=== PATIENT | male | born 1990 | race Caucasian/White ===

== ENCOUNTER 2019-04-29 00:54 | Emergency (ER) | payer SELFPAY ==
[~2019-04-29] VITALS: Ht 182.9 cm; Wt 74.8 kg
[~2019-04-29 00:54] MED LIST: Acetaminophen-1 EAC1 PO; IBUP800 PO; PROC10 PO; Zantac150 MG PO
[2019-04-29 01:48] LABS: Influenza A Negative (NEGATIVE); Influenza B Negative (NEGATIVE)
[2019-04-29 02:18] LABS: BASOPHILS ABSOLUTE AUTO 0.04 K/mm3 (0.00-0.23); BASOPHILS PERCENT AUTO 1 % (0-2); EOSINOPHILS ABSOLUTE AUTO 0.25 K/mm3 (0.00-0.68); EOSINOPHILS PERCENT AUTO 3 % (0-6); Hematocrit 41.4 % (37.0-53.0); Hemoglobin 14.2 g/dL (13.5-17.5); IMMATURE GRAN ABSOLUTE AUTO 0.04 K/mm3 (0.00-0.10); IMMATURE GRAN PERCENT AUTO 1 % (0-1); LYMPHOCYTES ABSOLUTE AUTO 2.91 K/mm3 (0.84-5.20); LYMPHOCYTES PERCENT AUTO 35 % (21-46); MONOCYTES ABSOLUTE AUTO 0.89 K/mm3 (0.16-1.47); MONOCYTES PERCENT AUTO 11 % (4-13); Mean Corpuscular HGB 32.8 pg (26.0-34.0); Mean Corpuscular HGB Conc 34.3 g/dL (31.5-36.5); Mean Corpuscular Volume 96 fL (80-100); Mean Platelet Volume 8.9 fL (9.1-12.4); NEUTROPHILS ABSOLUTE AUTO 4.17 K/mm3 (1.96-9.15); NEUTROPHILS PERCENT AUTO 50 % (41-73); Platelet Count 252 K/mm3 (150-400); RDW Coefficient Variation 11.1 % (11.7-14.2); RDW Standard Deviation 38.8 fL (35.1-46.3); Red Blood Cell Count 4.33 M/mm3 (4.30-5.90)
[2019-04-29 02:26] LABS: Alanine Aminotransfer (ALT/SGP 48 U/L (12-78); Albumin, Blood 3.7 g/dL (3.4-5.0); Alk Phos 76 U/L (50-136); Anion Gap 4 mmol/L (6-16); Aspartate Aminotrans (AST/SGOT 26 U/L (12-37); Bilirubin, Total 0.3 mg/dL (0.1-1.0); Blood Urea Nitrogen 17 mg/dL (8-24); Bun/Creatinine Ratio 19.2 (12.0-20.0); CO2, Blood 31 mmol/L (21-32); Calcium, Blood 8.8 mg/dL (8.5-10.1); Chloride, Blood 105 mmol/L (98-108); Creatinine, Blood 0.89 mg/dL (0.60-1.20); Globulin, Blood 3.6 g/dL (2.2-4.0); Glomerular Filtration Rate >60 (60-); Glucose, Blood 93 mg/dL (70-99); Sodium, Blood 140 mmol/L (136-145); Total Protein, Blood 7.3 g/dL (6.4-8.2)
[2019-04-29 02:38] LABS: Ethanol (Alcohol), Blood, Med <3 mg/dL
== END 2019-04-29 03:50 | disposition home or self-care (01) ==
LOC: ER 00:54
PROVIDERS: Emergency Medicine
DX: R10.9 Unspecified abdominal pain (principal); F17.210 Nicotine dependence, cigarettes, uncomplicated; F17.290 Nicotine dependence, other tobacco product, uncomplicated
CPT/HCPCS: 36415; 80053; 83690; 85025; 87804; 96360; 99284-25; G0480; J7030

== ENCOUNTER 2020-04-04 21:21 | Emergency (ER) | payer SELFPAY ==
[~2020-04-04] VITALS: Ht 180.3 cm; Wt 77.2 kg
== END 2020-04-04 22:28 | disposition left against medical advice (07) ==
LOC: ER 21:21
DX: S30.1XXA Contusion of abdominal wall, initial encounter (principal); F17.210 Nicotine dependence, cigarettes, uncomplicated; W23.1XXA Caught, crushed, jammed, or pinched between stationary objects, initial encounter
CPT/HCPCS: 99282

== ENCOUNTER 2020-09-03 03:13 | Emergency (ER) | payer OTHER ==
[~2020-09-03] VITALS: Ht 193 cm; Wt 72.6 kg
[~2020-09-03 03:13] MED LIST changes: +Amoxicillin500 MG PO; +Amoxicillin875 MG PO; +Crutch1 EACH MISC; +IBU800 MG PO; +IBUP600 PO; +MIRT30 PO; +NAPR550 PO; +ONDA4ODT MM; +PAROEX473 ML MM
[2020-09-03] MEDS ORDERED: AMOCLA875 PO (03:43)
== END 2020-09-03 03:45 | disposition home or self-care (01) ==
LOC: ER 03:13
DX: K02.9 Dental caries, unspecified (principal); F17.210 Nicotine dependence, cigarettes, uncomplicated
CPT/HCPCS: 99283; A9270

== ENCOUNTER 2021-03-16 23:18 | Emergency (ER) | payer OTHER ==
[~2021-03-16] VITALS: Ht 182.9 cm; Wt 77.1 kg
[~2021-03-16 23:18] MED LIST changes: +AMOCLA875 PO
[2021-03-17 01:15] LABS: SARS-Cov-2 (COVID-19) PCR, MMC NEGATIVE (NEGATIVE)
== END 2021-03-17 00:15 | disposition left against medical advice (07) ==
LOC: ER 23:18
PROVIDERS: Emergency Medicine
DX: K08.89 Other specified disorders of teeth and supporting structures (principal); F17.210 Nicotine dependence, cigarettes, uncomplicated; Z53.21 Procedure and treatment not carried out due to patient leaving prior to being seen by health care provider; Z20.822 Contact with and (suspected) exposure to COVID-19
CPT/HCPCS: 99283; J1885; U0004

== ENCOUNTER 2022-01-15 12:59 | Emergency (ER) | payer SELFPAY ==
[~2022-01-15] VITALS: Ht 180.3 cm; Wt 77.1 kg
[~2022-01-15 12:59] MED LIST changes: +CEPH500 PO
== END 2022-01-15 16:00 | disposition left against medical advice (07) ==
LOC: ER 12:59
DX: R11.2 Nausea with vomiting, unspecified (principal); R10.9 Unspecified abdominal pain; Z53.21 Procedure and treatment not carried out due to patient leaving prior to being seen by health care provider
CPT/HCPCS: 70487; Q9967

== ENCOUNTER 2022-05-23 03:31 | Emergency (ER) | payer OTHER ==
[~2022-05-23] VITALS: Ht 180.3 cm; Wt 74.8 kg
[2022-05-23] MEDS ORDERED: AMOCLA875 PO (04:17)
== END 2022-05-23 04:41 | disposition home or self-care (01) ==
LOC: ER 03:31
DX: K04.7 Periapical abscess without sinus (principal); F17.210 Nicotine dependence, cigarettes, uncomplicated; Z79.899 Other long term (current) drug therapy
CPT/HCPCS: A9270

== ENCOUNTER 2022-10-26 16:15 | Emergency (ER) | payer OTHER ==
[~2022-10-26] VITALS: Ht 182.9 cm; Wt 79.4 kg
[~2022-10-26 16:15] MED LIST changes: +Amoxicillin500 M1 PO
[2022-10-26 16:26] VITALS: BP 134/80
[2022-10-26] MEDS ORDERED: IBUP800 PO (17:06)
== END 2022-10-26 17:21 | disposition home or self-care (01) ==
LOC: ER 16:15
DX: K04.7 Periapical abscess without sinus (principal); F17.200 Nicotine dependence, unspecified, uncomplicated
CPT/HCPCS: 99282; A9270